=== PATIENT | male | born 1945 | race Caucasian/White ===

== ENCOUNTER 2017-04-25 21:35 | Inpatient (IN) | payer MEDICARE ==
[~2017-04-25] VITALS: Ht 170.2 cm; Wt 88.6 kg
[~2017-04-25 21:35] MED LIST: INSU100I13 SQ; INSU100I17 SQ; [UNRECOGNIZED DRUG - REMARK]; [UNRECOGNIZED DRUG - REMARK]
--- NOTE | 2017-04-25 22:41 | RAD ---
PQRS Compliance Statement: One or more of the following individualized dose reduction techniques were utilized for this examination: 1. Automated exposure control 2. Adjustment of the mA and/or kV according to patient size 3. Use of iterative reconstruction technique CT head without contrast 04/25/2017 10:14 PM INDICATION: Right-sided weakness, right facial tingling COMPARISON: None available TECHNIQUE: Multiple axial CT images of the head were obtained from skull base through the vertex without intravenous contrast. FINDINGS: Head: Ventricles, sulci and basal cisterns are mildly prominent compatible with mild generalized cerebral volume loss. 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 Suboccipital craniotomy changes are present with subjacent encephalomalacia. Aneurysm clip is visualized in the right PICA region. There is no hydrocephalus. No cytotoxic edema is visualized. There is no acute intracranial hemorrhage. There is no mass, mass effect or midline shift. Visualized portions of the orbits are normal. Paranasal sinuses are well aerated. Mastoid air cells are well aerated. Scalp and calvaria are normal. IMPRESSION: No acute intracranial hemorrhage. Suboccipital craniotomy for aneurysm clipping in the right posterior inferior cerebellar artery territory. There is encephalomalacia involving the right cerebellum and medial left cerebellum. FOR INTERNAL CODING PURPOSES Critical result: Findings discussed with CHUNG LAWRENCE at 04/25/2017 10:37 PM. RESULT CODE: (C) Electronically signed by: Karyn Mcclendon MD (04/25/2017 10:38 PM) [facility]
[2017-04-25 22:49] LABS: BASO % 0 % (0-3); EOS # 0.2 x10^3/uL (0.0-0.7); EOS % 2 % (0-3); HEMATOCRIT 43.1 % (39.0-53.0); HEMOGLOBIN 15.3 g/dL (13.0-17.5); LYMPH # 3.4 x10^3/uL (1.0-4.8); LYMPH % 33 % (24-48); MEAN CORPUSCULAR HEMOGLOBIN 31 pg (25-35); MEAN CORPUSCULAR HGB CONC 36 g/dL (31-37); MEAN CORPUSCULAR VOLUME 88 fL (79-100); MONO # 0.8 x10^3/uL (0.0-1.1); MONO % 8 % (0-9); NEUT # 5.8 x10^3uL (1.8-7.7); NEUT % 57 % (31-73); PLATELET COUNT 192 x10^3/uL (140-400); RED BLOOD COUNT 4.89 x10^6/uL (4.30-5.70); RED CELL DISTRIBUTION WIDTH 13.1 % (11.5-14.5); WHITE BLOOD COUNT 10.2 x10^3/uL (4.0-11.0)
[2017-04-25 22:51] LABS: ALBUMIN 3.6 g/dL (3.4-5.0); CREATININE 1.8 mg/dL (0.7-1.3); GFR 37.5; POTASSIUM 3.7 mmol/L (3.5-5.1); TOTAL BILIRUBIN 0.5 mg/dL (0.2-1.0); TOTAL PROTEIN 7.1 g/dL (6.4-8.2)
--- NOTE | 2017-04-25 22:58 | EKG ---
[address] [address] Test Date: 2017-04-25 Test Time: 22:30:35 Pat Name: HALEY SUÁREZ Department: Room: Gender: M Personal Driver: CIRO : [id number] Requested By: CHUNG LAWRENCE Order Number: [id number] Reading MD: Jonathan Gan Measurements Intervals [place] Rate: 72 P: 26 CT: 186 QRS: 43 QRSD: 92 T: 43 QT: 378 QTc: 415 Interpretive Statements SINUS RHYTHM NONSPECIFIC ST-T WAVE CHANGES. RI6.01 Unconfirmed report No previous ECG available for comparison Electronically Signed On 05-05-2017 16:21:23 ELECTRICIAN HELPER by Jonathan Gan
[2017-04-25] MEDS ORDERED: IOHEXOL 300 MG/ML 75 ML VIAL. IV ONE (23:00)
[2017-04-25 23:13] LABS: BILIRUBIN,URINE NEG (NEG); CLARITY,URINE CLEAR; COLOR,URINE YELLOW; GLUCOSE,URINE >=1000 mg/dL (NEG); NITRITE,URINE NEG (NEG); RBC,URINE 0 /HPF (0-2); UROBILINOGEN,URINE 0.2 mg/dL (0.2 mg/dL)
[2017-04-25 23:14] LABS: BACTERIA,URINE 0 /HPF (0-FEW); SQUAMOUS EPITHELIAL CELL,UR OCC /LPF; WBC,URINE 0 /HPF (0-4)
[2017-04-25] MEDS ORDERED: IOHEXOL 300 MG/ML 50 ML VIAL. IV ONE ×2 (23:15)
[2017-04-25] MEDS ORDERED: CONTRAST GIVEN MC PRN (23:15)
[2017-04-25 23:48] LABS: SEDIMENTATION RATE 2 (0-15)
[2017-04-26] VITALS (7 sets, daily range): BP systolic 100–140; BP diastolic 46–61
--- NOTE | 2017-04-26 01:02 | PHYS DOC ---
Past History Past Medical History: Arthritis, CAD, Diabetes, High Cholesterol, Heart Disease , Hypertension, Other Past Surgical History: Appendectomy, Cholecystectomy, Other Alcohol Use: Rarely Drug Use: None Adult General Chief Complaint Chief Complaint: WEAKNESS/GENERALIZED HPI HPI Patient is a 71-year-old gentleman with history significant for an aneurysm back in 1983 as well as diabetes and hypertension presents here today secondary to numbness to the right side of his face as well as numbness to his fingers that started approximately 9:30 PM tonight. Patient denies any weakness to his upper or lower extremities. Family denies any slurring of speech although they report that he does look like he has a slight right facial droop. Patient denies any difficulty with ambulation or weakness to his lower extremities. Patient has any double vision or blurred vision. Patient denies any difficulty swallowing. Patient denies any respiratory issues. Patient has any chest pain or shortness of breath. Patient reports that when the symptoms first started it occurred in his fingers and now his right hand feels numb. Patient denies any weakness to his hand just feels numb according the patient. Patient denies any history of strokes in the past. Patient has any history of atrial fibrillation. Patient is status post appendectomy and cholecystectomy. Patient has had a history of skin cancer in the past. reports that he did have an aneurysm in the past, approximately 1983, which resulted in him being in a coma for quite a long time was listed have seizures lifelong which she reports no seizures ever since being discharged from the hospital. Review of systems: Constitutional: Denies fever or chills Eyes: Denies change in visual acuity, redness, or eye pain HENT: Denies nasal congestion or sore throat Respiratory: Denies cough or shortness of breath All other systems were reviewed and found to be within normal limits, except as documented in this note. Physical exam: Constitutional: Well developed, well nourished, no acute distress, non-toxic appearance. HENT: Normocephalic, atraumatic, bilateral external ears normal, nose normal. Eyes: PERRLA, EOMI, conjunctiva normal, no discharge. Neck: Normal range of motion, no tenderness, supple, no stridor. Cardiovascular: Heart rate regular rhythm, Lungs & Thorax: Bilateral breath sounds clear to auscultation Abdomen: No abdominal distention. Skin: Warm, dry, no erythema, no rash. Back: Normal spinal curvature Extremities: No tenderness, no cyanosis, no clubbing, ROM intact, no edema. Neurologic: Alert and oriented X 3, normal motor function, patient with sensory deficit to his right cheek and face. Patient was sensory deficit to his right hand. Patient has no sensory deficit to person's body. Patient's motor strength is 5 out of 5 in his upper and lower extremities. Patient is 5 out of 5 bilateral hand grasp bicep flexion shoulder shrug. Patient has no pronator drift. Psychologic: Affect normal, judgement normal, mood normal. Patient's ER physical exam was most remarkable: Normal neurological exam except for paresthesias to his right face with a slight right nasolabial fold flattening. Patient has paresthesias to his right hand however has actually no motor deficit. EKG as interpreted by ER physician reveals: Normal sinus rhythm with nonspecific ST-T wave abnormalities. No ST elevation MT. Chest x-ray as interpreted by ER physician reveals: Normal chest x-ray CT scan of head: No evidence of any acute stroke or bleed. Assessment and plan: 1. 71year-old gentleman who presents here today secondary to new onset paresthesias to his right face and new-onset paresthesias to his right hand as well as flattening of his right nasolabial fold. Patient's ER workup is been unremarkable. Patient is not a candidate for thrombolytic therapy secondary to his prior history of a brain aneurysm. Patient will be admitted to the hospital for further evaluation of his new neurological symptoms. Stroke protocol has been initiated on this patient. Aspirin will be given. Current Medications Current Medications Current Medications Medications (Trade) Dose Ordered Sig/Hali Start Time Stop Time Status Last Admin Dose Admin Info (Do NOT chart on this entry -- for MONITORING) 1 each PRN DAILY PRN 04/25/17 23:15 04/27/17 23:14 Iohexol (Omnipaque 300 Mg/ml) 50 ml 1X ONCE 04/25/17 23:15 04/25/17 23:16 DC Allergies Allergies Allergies Coded Allergies Type Severity Reaction Last Updated Verified glipizide Allergy Mild Diarrhea 04/25/17 Yes metformin Allergy Mild Diarrhea 04/25/17 Yes Current Patient Data Vital Signs Vital Signs Date Time Temp Pulse Resp B/P (MAP) Pulse Ox O2 Delivery O2 Flow Rate FiO2 04/25/17 21:44 97.9 72 20 96 Room Air Lab Results Laboratory Tests Test 04/25/17 22:20 04/25/17 22:42 White Blood Count 10.2 x10^3/uL (4.0-11.0) Red Blood Count 4.89 x10^6/uL (4.30-5.70) Hemoglobin 15.3 g/dL (13.0-17.5) Hematocrit 43.1 % (39.0-53.0) Mean Corpuscular Volume 88 fL (79-100) Mean Corpuscular Hemoglobin 31 pg (25-35) Mean Corpuscular Hemoglobin Concent 36 g/dL (31-37) Red Cell Distribution Width 13.1 % (11.5-14.5) Platelet Count 192 x10^3/uL (140-400) Neutrophils (%) (Auto) 57 % (31-73) Lymphocytes (%) (Auto) 33 % (24-48) Monocytes (%) (Auto) 8 % (0-9) Eosinophils (%) (Auto) 2 % (0-3) Basophils (%) (Auto) 0 % (0-3) Neutrophils # (Auto) 5.8 x10^3uL (1.8-7.7) Lymphocytes # (Auto) 3.4 x10^3/uL (1.0-4.8) Monocytes # (Auto) 0.8 x10^3/uL (0.0-1.1) Eosinophils # (Auto) 0.2 x10^3/uL (0.0-0.7) Basophils # (Auto) 0.0 x10^3/uL (0.0-0.2) Erythrocyte Sedimentation Rate 2 (0-15) Prothrombin Time 10.2 SEC (9.4-11.4) Prothrombin Time INR 1.0 (0.9-1.1) PTT 24 SEC (23-33) Sodium Level 139 mmol/L (136-145) Potassium Level 3.7 mmol/L (3.5-5.1) Chloride Level 104 mmol/L (98-107) Carbon Dioxide Level 27 mmol/L (21-32) Anion Gap 8 (6-14) Blood Urea Nitrogen 24 mg/dL (8-26) Creatinine 1.8 mg/dL (0.7-1.3) H Estimated GFR (Cockcroft-Gault) 37.5 BUN/Creatinine Ratio 13 (6-20) Glucose Level 139 mg/dL (70-99) H Calcium Level 9.0 mg/dL (8.5-10.1) Total Bilirubin 0.5 mg/dL (0.2-1.0) Aspartate Amino Transferase (AST) 30 U/L (15-37) Alanine Aminotransferase (ALT) 44 U/L (16-63) Alkaline Phosphatase 109 U/L (46-116) Troponin I Quantitative < 0.017 ng/mL (0-0.055) Total Protein 7.1 g/dL (6.4-8.2) Albumin 3.6 g/dL (3.4-5.0) Albumin/Globulin Ratio 1.0 (1.0-1.7) Urine Collection Type Unknown Urine Color Yellow Urine Clarity Clear Urine pH 5.5 Urine Specific [place] 1.015 Urine Protein Neg (NEG-TRACE) Urine Glucose (UA) >=1000 mg/dL (NEG) Urine Ketones (Stick) Trace mg/dL (NEG) Urine Blood Neg (NEG) Urine Nitrite Neg (NEG) Urine Bilirubin Neg (NEG) Urine Urobilinogen Dipstick 0.2 mg/dL (0.2 mg/dL) Urine Leukocyte Esterase Neg (NEG) Urine RBC 0 /HPF (0-2) Urine WBC 0 /HPF (0-4) Urine Squamous Epithelial Cells Occ /LPF Urine Bacteria 0 /HPF (0-FEW) EKG EKG [] Radiology/Procedures Radiology/Procedures [] Course & Med Decision Making Course & Med Decision Making Pertinent Labs and Imaging studies reviewed. (See chart for details) [] Dragon Disclaimer Dragon Disclaimer This electronic medical record was generated, in whole or in part, using a voice recognition dictation system. Departure Departure: Impression: Primary Impression: Stroke determined by clinical assessment Additional Impression: Facial paresthesia Disposition: ADMITTED INPATIENT Admitting Physician: Waqas Foley Condition: STABLE Referrals: WAQAS FOLEY MD (PCP) Problem Qualifiers CHUNG LAWRENCE MD Apr 26, 2017 01:02
[2017-04-26] MEDS ORDERED: ONDANSETRON PF 4 MG/2 ML VIAL. IV PRN (01:15)
[2017-04-26] MEDS ORDERED: ACETAMINOPHEN 325 MG TABLET PO PRN (01:15)
[2017-04-26] MEDS ORDERED: ASPIRIN ENTERIC COATED 325 MG TABLET.DR. PO ONE (01:15)
[2017-04-26] MEDS ORDERED: ATOR20TA58 PO (03:49)
[2017-04-26] MEDS ORDERED: MECL25TA3 PO (03:49)
[2017-04-26] MEDS ORDERED: GABA300C8 PO (03:49)
[2017-04-26] MEDS ORDERED: LISI10TA2 PO (03:49)
[2017-04-26] MEDS ORDERED: GLIP5TAB10 PO (03:49)
[2017-04-26] MEDS ORDERED: TAMS0.4C2 PO (03:49)
[2017-04-26] MEDS ORDERED: CANA300T PO (03:49)
--- NOTE | 2017-04-26 07:59 | RAD ---
History: Right-sided weakness AP view the chest was obtained at 2302 hours. Comparison: none The cardiomediastinal silhouette is normal. The pulmonary vasculature is normal. The lungs and pleural margins are clear. Impression: No evidence of an acute cardiopulmonary process.
[2017-04-26] MEDS: GABAPENTIN 300 MG CAPSULE. PO SCH ×2 (08:48→14:00)
[2017-04-26] MEDS: MECLIZINE 12.5 MG TABLET. PO SCH ×2 (08:49→20:48)
[2017-04-26] MEDS: LISINOPRIL 10 MG TABLET PO SCH (08:49)
[2017-04-26] MEDS: glipiZIDE 5 MG TABLET PO SCH (08:50)
[2017-04-26] MEDS: NON FORMULARY ITEM (Canagliflozin (Invokana) 300 MG) PO SCH (08:52)
[2017-04-26] MEDS: INSULIN ASPART 300 UNITS/3 ML INSULN.PEN SQ SCH ×3 (08:55→17:15)
--- NOTE | 2017-04-26 14:43 | HP ---
ADMIT DATE: 04/26/2017 HISTORY OF PRESENT ILLNESS: A 71-year-old gentleman with history significant for aneurysm in the back of his head in 1983 as well as diabetes and hypertension. The patient has secondary numbness starting to spread down in the right side of his face as well as numbness to his fingers, right arm, and also a toe drop on his right foot. The patient denies any other problems at the present time. He denies any slurred speech. He does look a little bit weaker. He does have slight right facial droop and difficulty with strength in his right arm. He denies any double vision, blurred vision. Denies chest pain, palpitations, fluttering, shortness of breath at the present time. He did note that the numbness started in his fingers and thumb and now has gotten up the arms since he has been out of the Emergency Room. The patient was admitted to the hospital for further evaluation and treatment thereof. MEDICATIONS: Include Accu-Chek ____, Centrum, NovoLog FlexPen, Lantus SoloSTAR, Glucotrol 5 mg daily, Lipitor 20 mg daily, lisinopril 10 mg a day, Flomax 0.4 b.i.d., meclizine 25 mg 1 tablet b.i.d., Invokana 300 mg 1 tablet daily, Lantus, Neurontin 300 mg 3 times a day, Glucotrol. PAST MEDICAL HISTORY: Positive for arthritis, coronary artery disease, type 2 diabetes, hypercholesterolemia, heart disease, hypertension, cerebral aneurysm, hypertriglyceridemia, nephrolithiasis. ALLERGIES: Adverse reaction to METFORMIN. FAMILY HISTORY: Father of unknown causes. Mother had cancer and diabetes. One brother, heart disease, blood thickening problems with diabetes. SOCIAL HISTORY: The patient is a former smoker, quit smoking several years ago. Does exercise. Occasional alcohol, but nothing significant there. REVIEW OF SYSTEMS: ____ right-sided numbness, otherwise, see the HPI. Denies any chest pain, shortness of breath, abdominal pain. Denies nausea, vomiting, melena, hematochezia, or hematemesis. Denies any diaphoresis. PHYSICAL EXAMINATION: GENERAL: Pleasant white male in moderate amount of distress, some facial weakness. VITAL SIGNS: Blood pressure 140/70, respiratory rate 20, pulse 70, afebrile. HEENT: The patient's head was atraumatic, normocephalic. Eyes: PERRLA without jaundice. Mouth and throat were normal. Some facial droopiness to the right side. The patient's speech appears to be basically normal, although enunciation is a little bit off from what he normally has. NECK: Supple, without JVD, carotid bruits. No thyromegaly. LUNGS: Diminished throughout, but clear. CARDIOVASCULAR: Regular sinus rhythm, S1, S2, without murmur, rub, thrill, or extra heart sound. ABDOMEN: The patient's abdomen was soft, nontender, no rebound or guarding. Positive bowel sounds. EXTREMITIES: No clubbing, cyanosis, or edema. 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 He does have a toe drop as he walks, catches a toe when he walks. Otherwise, speech appears to be basically normal. Some right-sided facial drooping. LABORATORY DATA: The patient's labs show creatinine elevated at 1.8, sugar 155. Troponin is normal. CBC basically unremarkable as well as his UA. Coags were negative. Electrocardiogram done, but not read. IMPRESSION: Probable left-sided cerebrovascular accident with right-sided hemiparesis, paresthesia on the right side, type 2 diabetes, chronic kidney disease 3, hyperlipidemia, borderline hypertension. He will continue to be monitored carefully, make further evaluation on him as indicated and we will go ahead and consult with Dr. Leigh, make further adjustments on his medications. RONALDO PULLIAM MD DR: CLARISSE/jonathan JOB#: [id number] / [id number]
--- NOTE | 2017-04-26 17:05 | RAD ---
Bilateral duplex carotid ultrasound: Indication: Right-sided face and arm tingling and numbness. Procedure: Two dimensional, duplex and color-flow images with spectral waveform analysis are obtained of the carotid arteries bilaterally. Vertebral arteries are also imaged. Findings: Right Carotid: The 2 D images demonstrate mild plaquing with no evidence of significant narrowing. The color images are normal without turbulence or jet effect. On the right ICA peak systolic velocity is 71 cm/sec. I The ICA/CCA ratio is 0.9 . Left Carotid: The 2 D images demonstrate mild plaquing with no evidence of significant narrowing. The color images are normal without turbulence or jet effect. On the left ICA peak systolic velocity is 81 cm/sec. The ICA/CCA ratio is 0.9 . Vertebral Arteries: The right vertebral artery is normal with normal direction of flow. The left vertebral artery is normal with normal direction of flow. Impression: There is evidence of atherosclerotic disease but no evidence of hemodynamically significant stenosis.
[2017-04-26] MEDS ORDERED: ATORVASTATIN CALCIUM 20 MG TABLET PO SCH (21:00)
[2017-04-26] MEDS ORDERED: INSULIN DETEMIR 300 UNITS/3 ML INSULN.PEN. SQ SCH (21:00)
[2017-04-26] MEDS ORDERED: TAMSULOSIN 0.4 MG CAP.ER.24H. PO SCH (21:00)
--- NOTE | 2017-04-27 00:10 | CONS ---
DATE OF CONSULTATION: 04/26/2017 REFERRING PHYSICIAN: Dr. Waqas Foley. REASON FOR CONSULTATION: Right facial numbness and intermittent numbness of the right arm and hand. HISTORY OF PRESENT ILLNESS: This is a 71-year-old right-handed white male who was admitted through Emergency Room after he presented with acute onset of right facial numbness and paresthesia that began at around 9 o'clock last night. The patient also complains of intermittent numbness and paresthesia of the right arm, but not right leg. These symptoms persisted since admission. He denies headaches, visual disturbances, nausea, vomiting, chest pain, shortness of breath or palpitation, dysarthria, dysphagia, or diplopia. Initial non-enhanced head CT scan revealed no evidence of acute intracranial process as hemorrhage, but it showed aneurysm clipping in the right posteroinferior cerebellar artery territory with encephalomalacia in the right cerebellum and medial left cerebellum. PAST MEDICAL HISTORY: Significant for aneurysmal clipping as described above in 1983, resulted in and resulted in imbalance and mild gait disturbances. Other medical problems include coronary artery disease, hyperlipidemia, hypertension, benign prostate hypertrophy, arthritis, right shoulder surgery, diabetes mellitus type 2, and skin cancer. PAST SURGICAL HISTORY: Clipping of aneurysm on the right PICA territory, appendectomy, and cholecystectomy. FAMILY HISTORY: Diabetes mellitus in his mother. SOCIAL HISTORY: The patient is a smoker. He denies alcohol or history of drug use. REVIEW OF SYSTEMS: A 10-point review of system was performed as mentioned above in the history of present illness. CURRENT MEDICATIONS: Aspirin 325 mg daily, insulin Levemir 45 units at bedtime, Flomax 0.8 at bedtime, Lipitor 20 mg every meclizine 25 mg b.i.d. p.r.n., lisinopril 10 mg daily, gabapentin 300 mg t.i.d., insulin NovoLog 20 units t.i.d. with meals, glipizide 5 mg daily, and Tylenol. ALLERGIES: Metformin. PHYSICAL EXAMINATION: GENERAL: Well-developed, well-nourished white male, not in acute distress. He weighs 198.5 pounds. VITAL SIGNS: Blood pressure 106/50, respiratory rate 18, pulse is 68 and regular, temperature 97.6, oxygen saturation 96% on room air. HEENT: Normocephalic, atraumatic, otherwise unremarkable. NECK: Supple. Negative for carotid bruit, lymphadenopathy or thyromegaly. LUNGS: Clear to A and P. CARDIOVASCULAR: Regular rate and rhythm, normal S1, S2. There is no S3, S4 or murmur. ABDOMEN: Soft. Bowel sounds positive. EXTREMITIES: Negative for cyanosis, clubbing or edema. NEUROLOGIC: MENTAL STATUS: The patient is alert and oriented x 3. Speech is fluent. There is no language dysfunction. Memory, judgment, and abstract thinking are normal. The patient denies hallucination or delusion. CRANIAL NERVES: Visual arzola are full. The pupils are reactive to light and accommodation. The extraocular movements are intact. There is no nystagmus. Motor facial is symmetric, but there is a mild right facial or sensory deficit compared to that on the left side. Hearing is intact bilaterally. The palate is elevated symmetrically. Sternocleidomastoid muscles are powerful bilaterally. The patient shrugs his shoulders symmetrically and protrudes his tongue in the midline without fasciculation or atrophy. MOTOR EXAMINATION: No focal muscle bulk was seen. The tone is normal. The strength is 5/5 throughout. SENSORY EXAMINATION: Revealed slightly diminished pinprick and light touch senses over the right upper extremity and lateral dermatomes compared to those on the left side since the examination also was normal to pinprick, light touch, vibratory, and position senses. Deep tendon reflexes were symmetric and active without pathology responses. Gait: The stance is steady. The patient had a wide step gait. Romberg sign is positive. LABORATORY DATA: CBC revealed white blood cells of 10.2, hemoglobin 15.3, hematocrit 43.1, platelet count 192,000. Chemistry revealed sodium of 139, potassium 3.7, chloride 104, CO2 27, BUN 24, creatinine 1.8, glucose 139, and calcium 9. Liver enzymes are normal. Troponin level less than 0.017. INR is 1 with a PT of 10.2. Urinalysis is negative for urinary tract infections. DIAGNOSTIC DATA: Head CT scan as described above in the history of present illness. Chest x-ray revealed no evidence of acute cardiopulmonary process. IMPRESSION: 1. Persistent right facial and intermittent numbness and paresthesia of the right upper extremity, rule out recent ischemic event. 2. History of aneurysm clipping in the right posterior inferior cerebellar artery territory and cerebellar infarct may have contributed to the recurrent gait disturbances. 3. Multiple medical problems include hypertension, hyperlipidemia, and coronary artery disease. RECOMMENDATIONS: 1. Continue with the current home medications. 2. Physical therapy as tolerated. 3. Carotid Doppler study. 4. The patient cannot obtain brain MRI because of an aneurysm clipping. M Susi DAVILA MD DR: ANDREA/jonathan JOB#: [id number] / [id number]
[2017-04-27 04:09] LABS: HEMOGLOBIN A1C 6.7 % (4.8-5.6)
[2017-04-27 05:02] VITALS: BP 101/47
[2017-04-27 07:07] LABS: BASO % 1 % (0-3); EOS # 0.2 x10^3/uL (0.0-0.7); EOS % 3 % (0-3); HEMATOCRIT 42.8 % (39.0-53.0); HEMOGLOBIN 14.7 g/dL (13.0-17.5); LYMPH # 2.8 x10^3/uL (1.0-4.8); LYMPH % 37 % (24-48); MEAN CORPUSCULAR HEMOGLOBIN 31 pg (25-35); MEAN CORPUSCULAR HGB CONC 34 g/dL (31-37); MEAN CORPUSCULAR VOLUME 89 fL (79-100); MONO # 0.6 x10^3/uL (0.0-1.1); MONO % 9 % (0-9); NEUT # 3.8 x10^3uL (1.8-7.7); NEUT % 51 % (31-73); PLATELET COUNT 181 x10^3/uL (140-400); RED CELL DISTRIBUTION WIDTH 12.9 % (11.5-14.5); WHITE BLOOD COUNT 7.5 x10^3/uL (4.0-11.0)
[2017-04-27 07:19] LABS: ALBUMIN 3.2 g/dL (3.4-5.0); CREATININE 1.1 mg/dL (0.7-1.3); GFR 66.2; POTASSIUM 4.2 mmol/L (3.5-5.1); TOTAL BILIRUBIN 0.6 mg/dL (0.2-1.0); TOTAL PROTEIN 6.5 g/dL (6.4-8.2)
[2017-04-27] MEDS ORDERED: ASPIRIN 325 MG TABLET PO SCH (08:00)
[2017-04-27] MEDS: MECLIZINE 12.5 MG TABLET. PO SCH (08:07)
[2017-04-27] MEDS: INSULIN ASPART 300 UNITS/3 ML INSULN.PEN SQ SCH ×2 (08:07→12:20)
[2017-04-27] MEDS: NON FORMULARY ITEM (Canagliflozin (Invokana) 300 MG) PO SCH (08:08)
[2017-04-27] MEDS: glipiZIDE 5 MG TABLET PO SCH (08:08)
[2017-04-27] MEDS: LISINOPRIL 10 MG TABLET PO SCH (08:59)
[2017-04-27 10:42] VITALS: BP 131/62
[2017-04-27] MEDS ORDERED: ASPI325T8 PO (11:25)
--- NOTE | 2017-04-27 12:01 | PN ---
DATE: 04/27/2017 SUBJECTIVE: The patient continues to complain of numbness and tingling of the right hand and forearm. He denies headaches, visual disturbances, nausea, vomiting, chest pain, shortness of breath or palpitation, dysarthria, dysphagia or weakness. OBJECTIVE: GENERAL: Well-developed, well-nourished white male, not in acute distress. VITAL SIGNS: Blood pressure 128/66, respiratory rate 18, pulse is 73 and regular, temperature 97.6, oxygen saturation is 96% on room air. HEENT: Normocephalic, atraumatic, otherwise unremarkable. NECK: Supple. Negative for carotid bruit, lymphadenopathy or thyromegaly. LUNGS: Clear to A and P. CARDIOVASCULAR: Regular rate and rhythm, normal S1, S2. There is no S3, S4 or murmur. ABDOMEN: Soft. Bowel sounds positive. EXTREMITIES: Negative for cyanosis, clubbing or pitting edema. NEUROLOGIC: Normal mental status and intact cranial nerves. Motor: No focal muscle bulk was seen. The tone is normal. The strength is 5/5 throughout. Sensory examination revealed diminished pinprick and light touch senses in the right upper extremity and slightly in the distal right lower extremity. Deep tendon reflexes are symmetric and active with absent Achilles responses. Gait: The patient had broad-step gait. Roberg sign is negative. IMPRESSION: 1. Persistent numbness on the right face, arm and leg, probably due to recent ischemic event. 2. Rule out entrapment neuropathy in the right upper extremity. 3. Multiple medical problems include diabetes mellitus, hypertension, hyperlipidemia, coronary artery disease and history of clipping of brain aneurysm at right PICA territory (posterior inferior cerebellar artery territory) and cerebellar infarct. DIAGNOSTIC DATA: Carotid Doppler study revealed no evidence of acute internal carotid stenosis. RECOMMENDATIONS: 1. Continue with current management initiated by Dr. Foley. 2. Continue his physical therapy. 3. Follow up with Dr. Leigh after 2 weeks to rule out entrapment neuropathy in the right upper and lower extremities. M Susi LEIGH MD DR: ANDREA/jonathan JOB#: [id number] / [id number]
== END 2017-04-27 13:30 | disposition home or self-care (01) | DRG 65 ==
LOC: ER 21:35 → 1 SOUTH 04-26 01:00
PROVIDERS: ADMIT Family Medicine; ATTEND Family Medicine
DX: I63.9 Cerebral infarction, unspecified (principal); G81.91 Hemiplegia, unspecified affecting right dominant side; E11.22 Type 2 diabetes mellitus with diabetic chronic kidney disease; G93.89 Other specified disorders of brain; I48.91 Unspecified atrial fibrillation; G58.8 Other specified mononeuropathies; E78.00 Pure hypercholesterolemia, unspecified; E78.1 Pure hyperglyceridemia; E78.5 Hyperlipidemia, unspecified; F17.200 Nicotine dependence, unspecified, uncomplicated; I25.10 Atherosclerotic heart disease of native coronary artery without angina pectoris; I12.9 Hypertensive chronic kidney disease with stage 1 through stage 4 chronic kidney disease, or unspecified chronic kidney disease; N40.0 Benign prostatic hyperplasia without lower urinary tract symptoms; N18.3 Chronic kidney disease, stage 3 (moderate); M19.90 Unspecified osteoarthritis, unspecified site; Z80.9 Family history of malignant neoplasm, unspecified; Z82.49 Family history of ischemic heart disease and other diseases of the circulatory system; Z83.3 Family history of diabetes mellitus; Z85.828 Personal history of other malignant neoplasm of skin; Z86.79 Personal history of other diseases of the circulatory system; Z87.442 Personal history of urinary calculi; Z90.49 Acquired absence of other specified parts of digestive tract; Z88.8 Allergy status to other drugs, medicaments and biological substances; Z79.4 Long term (current) use of insulin
CPT/HCPCS: 36415; 70450; 71010; 80053; 80061; 81001; 82947; 83036; 84484; 85025; 85610; 85651; 85730; 93005; 93880; J1815; J8597; 99285-25

== ENCOUNTER 2017-11-19 19:37 | Emergency (ER) | payer MEDICARE ==
[~2017-11-19] VITALS: Ht 170.2 cm; Wt 92.9 kg
[~2017-11-19 19:37] MED LIST changes: +ASPI325T8 PO; +ATOR20TA58 PO; +CANA300T PO; +GABA300C8 PO; +GLIP5TAB10 PO; +LISI10TA2 PO; +MECL25TA3 PO; +TAMS0.4C2 PO
[2017-11-19] MEDS ORDERED: DIPHTH,PERTUSS(ACELL),TET TOX 0.5 ML DISP.SYRIN. VAX IM ONE (20:00)
[2017-11-19] MEDS ORDERED: LIDOCAINE 2% 20 ML VIAL. IJ ONE (20:00)
[2017-11-19 20:37] VITALS: BP 135/58
--- NOTE | 2017-11-19 20:41 | PHYS DOC ---
Past History Past Medical History: Arthritis, CAD, Diabetes, High Cholesterol, Heart Disease , Hypertension, Other Past Surgical History: Appendectomy, Cholecystectomy, Other Alcohol Use: Rarely Drug Use: None Adult General Chief Complaint Chief Complaint: LACERATION/AVULSION HPI HPI Patient is a 72-year-old male who is presenting with a laceration to the right ring finger. Apparently he cut it on a piece of metal as he was trying to put a window in the back of a car. The glass did not shatter he cut on metal not flaccid that he knows there is no glass inside the finger. He has baseline numbness from a prior stroke no new numbness Review of Systems Review of Systems Constitutional: Denies fever or chills [] Eyes: Denies change in visual acuity, redness, or eye pain [] HENT: Denies nasal congestion or sore throat [] Respiratory: Denies cough or shortness of breath [] Neurologic: Sensory changes noted. All other systems were reviewed and found to be within normal limits, except as documented in this note. Current Medications Current Medications Current Medications Medications (Trade) Dose Ordered Sig/Hali Start Time Stop Time Status Last Admin Dose Admin Diphtheria/ Tetanus/Acell Pertussis (Boostrix) 0.5 ml ONCE ONCE 11/19/17 20:00 11/19/17 20:01 DC 11/19/17 20:33 0.5 ML Lidocaine HCl 20 ml 1X ONCE 11/19/17 20:00 11/19/17 20:01 DC Allergies Allergies Allergies Coded Allergies Type Severity Reaction Last Updated Verified metformin Allergy Mild Diarrhea 04/25/17 Yes gabapentin Allergy Unknown 04/26/17 Yes Physical Exam Physical Exam Constitutional: Well developed, well nourished, no acute distress, non-toxic appearance. [] HENT: Normocephalic, atraumatic, bilateral external ears normal, oropharynx moist, no oral exudates, nose normal. [] Eyes: PERRLA, EOMI, conjunctiva normal, no discharge. [] Normal effort no increased work of breathing Skin: Warm, dry, no erythema, no rash. [] Back: No tenderness, no CVA tenderness. [] Extremities: There is a 2 cm laceration on the ulnar side of the fourth finger on the right hand no tendon injury was identified no foreign body was seen. There is also a small 1 severe laceration just proximal to that. Moderate bleeding Full extensor and flexor function was noted Neurologic: Alert and oriented X 3, normal motor function, decreased sensory function on the right hand which is not new EKG EKG [] Radiology/Procedures Radiology/Procedures [] Course & Med Decision Making Course & Med Decision Making Pertinent Labs and Imaging studies reviewed. (See chart for details) Laceration repair: Verbal consent was obtained digital block with 3 mL so subcutaneous lidocaine 2% patient tolerated well the wound was cleansed usual fashion no foreign body was identified the wound was closed with a total of 5 simple interrupted sutures. There was a small 1 cm laceration closed with 2 simple interrupted and also a 2 cm laceration closed with 3 simple interrupted Laceration as noted repaired as above tetanus was updated blood pressure looked good wound care instructions provided patient is a diabetic so specifically asked to come back for any signs of redness or any other symptoms. Dragon Disclaimer Dragon Disclaimer This electronic medical record was generated, in whole or in part, using a voice recognition dictation system. Departure Departure: Impression: Primary Impression: Laceration Disposition: 01 HOME, SELF-CARE Condition: STABLE Patient Instructions: Laceration Care, Adult JUAN DUNCAN MD Nov 19, 2017 20:41
== END 2017-11-19 20:45 | disposition home or self-care (01) ==
LOC: ER 19:37
DX: S61.214A Laceration without foreign body of right ring finger without damage to nail, initial encounter (principal); M19.90 Unspecified osteoarthritis, unspecified site; I25.10 Atherosclerotic heart disease of native coronary artery without angina pectoris; E11.9 Type 2 diabetes mellitus without complications; E78.00 Pure hypercholesterolemia, unspecified; I11.9 Hypertensive heart disease without heart failure; Z88.8 Allergy status to other drugs, medicaments and biological substances; W26.8XXA Contact with other sharp object(s), not elsewhere classified, initial encounter; Y93.89 Activity, other specified; Y99.8 Other external cause status; Y92.89 Other specified places as the place of occurrence of the external cause
CPT/HCPCS: 12002; 90471; 90715; 99284-25; J2001

== ENCOUNTER → 2018-08-21 | Outpatient (CLI) | payer MEDICARE ==
--- NOTE | 2018-08-21 15:55 | RAD ---
CT study of the left hand without contrast Clinical indications: Fracture left hand 4 weeks ago. Continued swelling and pain in the left axillary and the left wrist. TECHNIQUE: Noncontrast helical CT scanning of the left hand and wrist was performed. Multiplanar 2-D reconstructions were generated. PQRS compliance Statement One or more of the following individualized dose reduction techniques were utilized for this study: 1. Automated exposure control 2. Adjustment of the mA and/or kV according to patient size 3. Use of iterative reconstruction technique FINDINGS: There is a nondisplaced fracture of the lateral proximal corner of the fifth metacarpal bone. There is a nondisplaced fracture of the proximal metaphysis of the third metacarpal bone. There is a nondisplaced fracture of the medial distal corner of the hamate bone. Small bone fragment is seen just medial to the distal aspect of the hamate bone and distal to the triquetrum bone. There is a nondisplaced fracture of the dorsal distal aspect of the capitate bone. There is a nondisplaced fracture of the dorsal distal aspect of the trapezium bone. No dislocation is seen. The [id number] axis is normal. There is no widening of the scaphoid lunate joint space or the lunate triquetrum joint space. No lytic process evident. No focal sclerosis is seen to indicate avascular necrosis of the scaphoid bone or the lunate bone. The scaphoid bone appears intact. The distal radius and ulna appear intact. IMPRESSION: Nondisplaced posttraumatic fractures of the proximal third metacarpal bone and proximal fifth metacarpal bone and distal hamate bone and distal capitate bone and distal trapezium bone. Electronically signed by: Tad Chambers MD (08/21/2018 3:52 PM) [id number]
== END | disposition home or self-care (01) ==
LOC: CT 09:08
PROVIDERS: ATTEND Family Medicine
DX: S62.145D Nondisplaced fracture of body of hamate [unciform] bone, left wrist, subsequent encounter for fracture with routine healing (principal); S62.13 Fracture of capitate [os magnum] bone; S62.175D Nondisplaced fracture of trapezium [larger multangular], left wrist, subsequent encounter for fracture with routine healing; S62.393D Other fracture of third metacarpal bone, left hand, subsequent encounter for fracture with routine healing; S62.397D Other fracture of fifth metacarpal bone, left hand, subsequent encounter for fracture with routine healing; E11.9 Type 2 diabetes mellitus without complications; X58.XXXD Exposure to other specified factors, subsequent encounter
CPT/HCPCS: 73200

== ENCOUNTER → 2019-06-06 | Outpatient (CLI) | payer MEDICARE ==
[~2019-06-06] MED LIST changes: +IOHEXOL 350 MG/ML 100 ML VIAL. IV ONE; +MECL-75 PO; -MECL25TA3 PO
--- NOTE | 2019-06-06 15:07 | RAD ---
CT angiography of the chest 06/06/2019 3:00 PM Indication: Shortness of breath Technique: Multiple contiguous axial images were obtained through the chest after administration of intravenous iodinated contrast. Coronal, sagittal, and 3-D MIP reformations were created. Comparison: Chest radiograph April 25, 2017. Findings: There is no filling defect within central pulmonary arteries or evidence of acute pulmonary embolism. Heart size is normal. No pericardial effusion is appreciated. Scattered coronary calcification noted. No pathologically enlarged mediastinal lymph nodes are seen. . The thoracic aorta is grossly normal in course and contour. There is no pneumothorax or pleural effusion. No acute infiltrates are seen. Limited visualization of the upper abdomen demonstrates no acute abnormality. No acute osseous abnormalities are appreciated. Impression: No evidence of acute pulmonary embolism or other acute cardiopulmonary process .CT DOSING PQRS STATEMENT: One or more of the following individualized dose reduction techniques were utilized for this examination: 1. Automated exposure control 2. Adjustment of the mA and/or kV according to patient size 3. Use of iterative reconstruction technique Electronically signed by: Papi Davis MD (06/06/2019 3:04 PM) [id number]
== END | disposition home or self-care (01) ==
LOC: CT 14:25
PROVIDERS: ATTEND Family Medicine
DX: R06.02 Shortness of breath (principal); I25.10 Atherosclerotic heart disease of native coronary artery without angina pectoris
CPT/HCPCS: 71275; Q9967

== ENCOUNTER 2019-09-29 13:32 | Emergency (ER) | payer MEDICARE ==
[~2019-09-29] VITALS: Ht 170.2 cm; Wt 92.9 kg
[~2019-09-29 13:32] MED LIST changes: -IOHEXOL 350 MG/ML 100 ML VIAL. IV ONE
--- NOTE | 2019-09-29 14:12 | PHYS DOC ---
Past History Past Medical History: Arthritis, CAD, CVA, Diabetes, High Cholesterol, Heart Disease, Hypertension, Stroke, Other Past Surgical History: Appendectomy, Cholecystectomy, Other Alcohol Use: None Drug Use: None General Adult EDM: Chief Complaint: FINGER INJURY HPI: HPI: 73-year-old male presents with right index finger partial amputation. The patient was using a router table when his finger got too close and he got caught in the right a bit. It has amputated the distal half of the fingernail and the rest of the distal phalanx is fairly mangled with minimal connection. The patient states that it is numb at this point. Will control the bleeding with direct pressure. He is on aspirin daily. He denies any other injuries. Review of Systems: Review of Systems: Constitutional: Denies fever or chills Eyes: Denies change in visual acuity HENT: Denies nasal congestion or sore throat Respiratory: Denies cough or shortness of breath Cardiovascular: Denies chest pain or edema GI: Denies abdominal pain, nausea, vomiting, bloody stools or diarrhea : Denies dysuria Musculoskeletal: Right index finger partial amputation Integument: Denies rash Neurologic: Denies headache, focal weakness or sensory changes Endocrine: Denies polyuria or polydipsia Lymphatic: Denies swollen glands Psychiatric: Denies depression or anxiety Heart Score: Risk Factors: Risk Factors: DM, Current or recent (<one month) smoker, HTN, HLP, family history of CAD, obesity. Risk Scores: Score 0 - 3: 2.5% MACE over next 6 weeks - Discharge Home Score 4 - 6: 20.3% MACE over next 6 weeks - Admit for Clinical Observation Score 7 - 10: 72.7% MACE over next 6 weeks - Early Invasive Strategies Allergies: Allergies: Allergies Coded Allergies Type Severity Reaction Last Updated Verified metformin Allergy Mild Diarrhea 04/25/17 Yes gabapentin Allergy Unknown 04/26/17 Yes Physical Exam: PE: Constitutional: Well developed, well nourished, no acute distress, non-toxic appearance. [] HENT: Normocephalic, atraumatic, bilateral external ears normal, oropharynx moist, no oral exudates, nose normal. [] Eyes: PERRLA, EOMI, conjunctiva normal, no discharge. [] Neck: Normal range of motion, no tenderness, supple, no stridor. [] Cardiovascular:Heart rate regular rhythm, no murmur [] Lungs & Thorax: Bilateral breath sounds clear to auscultation [] Abdomen: Bowel sounds normal, soft, no tenderness, no masses, no pulsatile masses. [] Skin: Warm, dry, no erythema, no rash. [] Back: No tenderness, no CVA tenderness. [] Extremities: Partial amputation of the distal phalanx of the second digit on the right hand. [] Neurologic: Alert and oriented X 3, normal motor function, normal sensory function, no focal deficits noted. [] Psychologic: Affect normal, judgement normal, mood normal. [] Current Patient Data: Vital Signs: Vital Signs Date Time Temp Pulse Resp B/P (MAP) Pulse Ox O2 Delivery O2 Flow Rate FiO2 09/29/19 13:42 98.5 99 18 131/74 (93) 96 Room Air EKG: EKG: [] Radiology/Procedures: Radiology/Procedures: [] Impressions: Study: CR FINGER(S) RIGHT Indication: Mangled index finger. Comparison: None. Findings: Traumatic amputation through the tuft of the index finger distal phalanx with the comminuted tuft fracture displaced within lacerated soft tissue. A few additional fracture fragments remain adjacent to the residual proximal phalanx. No acute osseous injury seen elsewhere. Multifocal interphalangeal joint arthrosis. Vascular calcifications. Impression: Traumatic amputation through the index finger distal phalanx with comminuted tuft fracture fragments displaced within mangled soft tissue. A few additional punctate fracture fragment remaining adjacent to the residual proximal phalanx. Electronically signed by: TAYLER ROSE MD (09/29/2019 2:20 PM) [id number] DICTATED AND SIGNED BY: TAYLRE ROSE MD DATE: 09/29/19 1420 CC: FARIBA BOLANOS DO; RONALDO PULLIAM MD ~ Course & Med Decision Making: Course & Med Decision Making Pertinent Labs and Imaging studies reviewed. (See chart for details) The patient has a partial amputation of the right index finger. This will need some revision to be able to close it. He will likely need some shortening of the bone as well. We have given him a Tdap and Ancef. I spoke with the orthopedic surgeon, Dr. Colon and he has accepted the patient for surgery. I spoke with Dr. Lawson, the hospitalist and he has accepted the patient for transfer and admission to [facility]. The patient will go by ambulance. [] Dragon Disclaimer: Dragon Disclaimer: This electronic medical record was generated, in whole or in part, using a voice recognition dictation system. Departure Departure: Impression: Primary Impression: Partial traumatic amputation of right index finger through phalanx [facility] Admitting Physician: Mattie Lawson Condition: STABLE Referrals: RONALDO PULLIAM MD (PCP) FARIBA BOLANOS DO September 29, 2019 14:12
[2019-09-29] MEDS ORDERED: DIPH,PERTUSS(ACELL),TET VAC/PF 0.5 ML SYRINGE. VAX IM ONE (14:15)
--- NOTE | 2019-09-29 14:23 | RAD ---
Study: CR FINGER(S) RIGHT Indication: Mangled index finger. Comparison: None. Findings: Traumatic amputation through the tuft of the index finger distal phalanx with the comminuted tuft fracture displaced within lacerated soft tissue. A few additional fracture fragments remain adjacent to the residual proximal phalanx. No acute osseous injury seen elsewhere. Multifocal interphalangeal joint arthrosis. Vascular calcifications. Impression: Traumatic amputation through the index finger distal phalanx with comminuted tuft fracture fragments displaced within mangled soft tissue. A few additional punctate fracture fragment remaining adjacent to the residual proximal phalanx. Electronically signed by: TAYLER ROSE MD (09/29/2019 2:20 PM) [id number]
[2019-09-29] MEDS ORDERED: ONDANSETRON PF 4 MG/2 ML VIAL. IVP ONE (14:30)
[2019-09-29] MEDS ORDERED: ONDANSETRON PF 4 MG/2 ML VIAL. ONE (14:31)
[2019-09-29 14:37] LABS: CALCIUM 9.1 mg/dL (8.5-10.1); CREATININE 1.1 mg/dL (0.7-1.3); GFR 65.8; POTASSIUM 4.3 mmol/L (3.5-5.1)
[2019-09-29] MEDS ORDERED: ceFAZolin SODIUM 1 GM VIAL ONE (14:37)
[2019-09-29] MEDS ORDERED: IV NORMAL SALINE 50ML 50 ML ONE (14:37)
[2019-09-29 14:42] LABS: ALBUMIN 3.7 g/dL (3.4-5.0); ALBUMIN/GLOBULIN RATIO 1.2 (1.0-1.7); TOTAL BILIRUBIN 0.6 mg/dL (0.2-1.0); TOTAL PROTEIN 6.9 g/dL (6.4-8.2)
--- NOTE | 2019-09-29 15:48 | EKG ---
[address] [address] Test Date: 2019-09-29 Test Time: 14:18:28 Pat Name: HALEY SUÁREZ Department: Room: Gender: M [employer] Monitoring: : 1945 Requested By: FARIBA BOLANOS Order Number: [id number] Reading MD: Octavio Haile Measurements Intervals [place] Rate: 79 P: 28 MA: 168 QRS: 45 QRSD: 86 T: 40 QT: 366 QTc: 421 Interpretive Statements SINUS RHYTHM Electronically Signed On 10-01-2019 15:46:17 CDT by Octavio Haile
[2019-09-29 16:11] VITALS: BP 130/61
== END 2019-09-29 16:54 | disposition short-term general hospital (02) ==
LOC: ER 13:32
DX: S68.120A Partial traumatic metacarpophalangeal amputation of right index finger, initial encounter (principal); M19.90 Unspecified osteoarthritis, unspecified site; I25.10 Atherosclerotic heart disease of native coronary artery without angina pectoris; E11.9 Type 2 diabetes mellitus without complications; E78.00 Pure hypercholesterolemia, unspecified; I11.9 Hypertensive heart disease without heart failure; Z86.73 Personal history of transient ischemic attack (TIA), and cerebral infarction without residual deficits; Z88.8 Allergy status to other drugs, medicaments and biological substances; W29.8XXA Contact with other powered hand tools and household machinery, initial encounter; Y93.89 Activity, other specified; Y92.89 Other specified places as the place of occurrence of the external cause; Y99.8 Other external cause status
CPT/HCPCS: 36415; 73140; 80053; 85610; 85730; 90471; 90715; 93005; 96365; 96375; 99285; J0690; J2405; J3010

== ENCOUNTER → 2020-02-25 | Outpatient (CLI) | payer MEDICARE ==
--- NOTE | 2020-02-25 12:41 | RAD ---
CT head, CT cervical, thoracic, and lumbar spine without contrast Indication: Fall, injury Technique: Noncontrast CT imaging was performed of the head, cervical spine, thoracic spine, and lumbar spine, multiplanar reconstruction images submitted. One or more of the following individualized dose reduction techniques were utilized for this examination: 1. Automated exposure control 2. Adjustment of the mA and/or kV according to patient size 3. Use of iterative reconstruction technique. Comparison: Head CT April 25, 2017 Head: Findings: There again has been suboccipital craniotomy. There is again encephalomalacia of the bilateral cerebellum greater on the right. 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 No convincing acute intracranial hemorrhage is identified. There is no new midline shift. There is again mild generalized supratentorial involutional change. No acute calvarial abnormality is identified. IMPRESSION: 1. No acute intracranial abnormality is identified. 2. 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 Cervical spine FINDINGS: No acute cervical spine fracture is identified. Cervical vertebral body stature is maintained. There is very mild grade 1 anterior spondylolisthesis at C7-T1. There is fairly severe degenerative disc disease at C6-7, to a lesser degree at C7-T1 and C3-4. No acute cervical spine fracture is identified. There is mild dextroscoliosis of cervical spine. There is adequate alignment of the lateral masses C1 relative to C2. Atlantoaxial distance is within normal limits. Uncovertebral degenerative change contributes to [id number] left and mild right C6-7 neural foramina compromise. There is variable multilevel cervical facet degenerative change. There is atherosclerotic calcification of the carotid arteries in the neck bilaterally. IMPRESSION: 1.No acute cervical spine fracture is identified. 2. There is degenerative disc disease and spondylosis greatest at C6-7. Thoracic spine FINDINGS: There is likely acute superior T12 compression fracture, mild osseous retropulsion superiorly. There is bone demineralization. There is mild superior endplate concavity of T3 without osseous retropulsion. There is multilevel thoracic spondylosis. There is multilevel thoracic facet degenerative change contributing to neural foramina compromise. There is moderate to severe narrowing of the right T2-3 neural foramen, to a somewhat lesser degree on the right such as at T10-11. There is other mild narrowing on the right at T3-4, T4-5, and T9-10 and T11-T12 and on the left at T7-8 and T10-11. There is coronary calcification. IMPRESSION: 1.There is superior T12 vertebral body compression fracture which is likely acute, minimal osseous retropulsion superiorly with mild indentation upon the ventral thecal sac. There is mild superior endplate concavity of T3 without osseous retropulsion, uncertain chronicity. There is bone demineralization. 2. There is multilevel vertebral thoracic neural foramina compromise due to facet degenerative change. Lumbar spine FINDINGS: There is mild superior endplate concavity of L1 without osseous retropulsion. There is bone demineralization. There is grade 1 anterior spondylolisthesis at L4-5. There is moderate to severe degenerative disc disease greatest at L5-S1 and L1-L2, to a somewhat lesser degree L2-3 through L4-5. There is multilevel spondylosis and lumbar facet degenerative change. There is scattered plaque of the abdominal aorta and branches. There is degree of stenosis of the renal arteries bilaterally. L1-L2: Disc osteophyte complex indents the ventral thecal sac greater in the left lateral recess with probable moderate left lateral recess stenosis, also probable mild right lateral recess stenosis. There is facet degenerative change. There is mild to moderate right and mild left neural foramina compromise. L2-3: There is disc osteophyte complex. There is facet degenerative change. There is likely at least mild if not moderate lateral recess stenosis bilaterally. Neural foramina are not significantly narrowed, very mild narrowing on the right. L3-L4: There is disc osteophyte complex. There is facet degenerative change. There is likely at least mild narrowing of the far left lateral recess. There is likely mild right greater than left neural foramina compromise by disc osteophyte complex and facets. L4-5: There is bilateral facet hypertrophic change. There is partial uncovering of the posterior aspect of the disc due to spondylolisthesis and superimposed minimal disc osteophyte complex. There is likely at least moderate narrowing of the far lateral recesses bilaterally and at least mild narrowing of the central canal. There is moderate, left greater than right neural foramina compromise. L5-S1: There is disc osteophyte complex. There is facet degenerative change. Spinal canal is not significantly narrowed although disc osteophyte complex contacts the descending S1 nerve roots. There is [id number], left greater than right neural foramina compromise. IMPRESSION: 1.There is mild superior L1 endplate concavity without osseous retropulsion, could be recent although chronicity more accurately evaluated by MRI. There is bone demineralization. 2. There is multilevel lumbar lateral recess stenosis. There is multilevel variable lumbar neural foramina compromise. There is multilevel lumbar degenerative disc disease and spondylosis. There is grade 1 anterior spondylolisthesis at L4-5 at which there is facet degenerative change. 3. There is degree of stenoses of the renal arteries bilaterally. Electronically signed by: Kelby Brewster MD (02/25/2020 12:38 PM) [facility]
== END ==
LOC: CT 11:32
PROVIDERS: ATTEND Family Medicine
DX: M47.815 Spondylosis without myelopathy or radiculopathy, thoracolumbar region (principal); M48.54XA Collapsed vertebra, not elsewhere classified, thoracic region, initial encounter for fracture; M43.13 Spondylolisthesis, cervicothoracic region; M50.33 Other cervical disc degeneration, cervicothoracic region; I70.0 Atherosclerosis of aorta; I70.1 Atherosclerosis of renal artery; M25.78 Osteophyte, vertebrae; M48.061 Spinal stenosis, lumbar region without neurogenic claudication; W19.XXXA Unspecified fall, initial encounter; Y93.89 Activity, other specified; Y92.89 Other specified places as the place of occurrence of the external cause; Y99.8 Other external cause status
CPT/HCPCS: 70450; 72125; 72128; 72131

== ENCOUNTER 2020-07-10 17:05 | Emergency (ER) | payer MEDICARE ==
[~2020-07-10] VITALS: Ht 170.2 cm; Wt 77.2 kg
[~2020-07-10 17:05] MED LIST changes: +LISI10TA16 PO; -LISI10TA2 PO
--- NOTE | 2020-07-10 17:28 | PHYS DOC ---
Past History Past Medical History: Arthritis, CAD, CVA, Diabetes, High Cholesterol, Heart Disease, Hypertension, Stroke, Other (TATYANA WOLFF MD) Past Surgical History: Appendectomy, Cholecystectomy, Other (TATYANA WOLFF MD) Alcohol Use: None Drug Use: None (TATYANA WOLFF MD) General Adult HPI: HPI: Patient is a 74-year-old male coming in via EMS for lower extremity weakness. Patient states that yesterday afternoon he got his [place] vaccine for COVID-19 and about 5 hours later started feel like his legs were not moving as they should. Patient states this mostly from the lower leg down that he feels weak and off balance. Denies any other symptoms. Has a history of a previous spinal fracture but denies any recent fall prior to symptoms. States he has been incontinent of urine since yesterday as well. Last bowel movement yesterday. Denies any headaches, upper extremity weakness, vision changes, sensory deficits, fevers, body aches, lower extreme edema, or burning with urination. (TATYANA WOLFF MD) Review of Systems: Review of Systems: All other systems within normal limits except for as noted in the HPI (TATYANA WOLFF MD) Allergies: Allergies: Allergies Coded Allergies Type Severity Reaction Last Updated Verified metformin Allergy Mild Diarrhea 04/25/17 Yes gabapentin Allergy Unknown 04/26/17 Yes (TATYANA WOLFF MD) Physical Exam: PE: Constitutional: Well developed, well nourished, no acute distress, non-toxic appearance. [] HENT: Normocephalic, atraumatic, bilateral external ears normal, nose normal. [] Eyes: PERRLA, conjunctiva normal, no discharge. [] Neck: No rigidity, supple, no stridor. [] Cardiovascular: Regular rate and rhythm, brisk cap refill [] Lungs & Thorax: Non labored symmetric respirations, no tachypnea or respiratory distress [] Abdomen: Soft, nondistended. Skin: Warm, dry, no erythema, no rash. [] Back: Unremarkable, no step-off or deformity, no point spinal tenderness. Extremities: No deformities, range of motion grossly intact, no lower extremity edema. Symmetric bilateral 5 lower extremity edema [] Neurologic: Alert and oriented X 3, no focal deficits noted.. No sensory deficits [] Psychologic: Affect normal, judgement normal, mood normal. [] (TATYANA WOLFF MD) EKG: EKG: Normal sinus rhythm, heart rate 76 bpm, 1 PAC, no ST elevation or depression, normal intervals [] (TATYANA WOLFF MD) Radiology/Procedures: Radiology/Procedures: Exam: CT head INDICATION: Lower extremity weakness TECHNIQUE: Sequential axial images through the head were obtained without the administration of IV contrast. Comparisons: 02/25/2020 FINDINGS: Redemonstration of craniotomy changes posteriorly with the aneurysmal clip the right BLOCK CHOPPER HAND distribution similar prior. Chronic infarct/encephalomalacia noted at the cerebellum. No focal parenchymal lesion or hemorrhage is identified. There is no midline shift or sulcal effacement. Patchy hypodensity in the periventricular white matter. No acute vascular territory infarction is identified. Kuhn-white distinction is preserved. The ventricular system is within normal limits without compression hydrocephalus. The basal cisterns are well maintained. The visualized portions of the paranasal sinuses and mastoid air cells are well- pneumatized. No acute fractures. IMPRESSION: No acute intracranial abnormality. [] (TATYANA WOLFF MD) Radiology/Procedures: FINDINGS: Augmented T12 and L1 compression fractures. Mild progression of superior endplate height loss at L1 relative to the preoperative augmentation CT but this is not acute. Noting osteopenia, no acute fracture above or below T12 and L1. Unchanged millimetric retrolisthesis of L3 on L4 and grade 1 anterolisthesis of L4 on L5. No progression of discogenic arthrosis. Multilevel facet degeneration in addition to disc bulges/protrusions some of which are partially mineralized. Multilevel central canal stenosis such as at L1-L2, L2-L3 and L4-L5 has not appreciably changed. Multilevel neural foraminal stenosis also appears similar such as on the right more so than left at L4-L5 and L5-S1. Intact visualized sacrum, iliac bones and right hip. No prevertebral or dorsal paraspinous edema/hemorrhage. Extensive calcific atherosclerosis. Prostatomegaly. IMPRESSION: 1. Taking into consideration osteopenia no acute fracture seen throughout the lumbar or lower thoracic spine. Chronic compression fractures at T12 and L1 which have been augmented. 2. No significant change in extent of advanced multilevel spondylosis from . Similar degree of resultant central canal and neural foraminal stenosis which would be better assessed with nonemergent/outpatient MRI as deemed clinically necessary. (MICKIE GRAVES MD) Heart Score: C/O Chest Pain: No Risk Factors: Risk Factors: DM, Current or recent (<one month) smoker, HTN, HLP, family history of CAD, obesity. Risk Scores: Score 0 - 3: 2.5% MACE over next 6 weeks - Discharge Home Score 4 - 6: 20.3% MACE over next 6 weeks - Admit for Clinical Observation Score 7 - 10: 72.7% MACE over next 6 weeks - Early Invasive Strategies (TATYANA WOLFF MD) Course & Med Decision Making: Course & Med Decision Making Care transitioned at shift change. (TATYANA WOLFF MD) Course & Med Decision Making Took over patient care from day team. Laboratory analysis not concerning. Imaging not concerning for new acute osseous abnormalities, but did show chronic changes. On reassessment patient stated he was feeling well, was asymptomatic and was ready to go home. Patient states that he walks with a walker at home and was walked in the ED without issue. Patient states he is at his approximate baseline and is ready to go home. Advised to follow-up with primary care physician as soon as he can to discuss his ED visit and set up a follow-up. Advised to come back to the ED with new or concerning symptoms. Patient grateful, verbalized understanding and agreed with plan of discharge. (MICKIE GRAVES MD) Dragon Disclaimer: Dragon Disclaimer: This electronic medical record was generated, in whole or in part, using a voice recognition dictation system. (TATYANA WOLFF MD) Departure Departure: Referrals: RONALDO PULLIAM MD (PCP) TATYANA WOLFF MD Jul 10, 2020 17:28 MICKIE GRAVES MD Jul 10, 2020 19:13
[2020-07-10 17:52] LABS: BASO # 0.1 x10^3/uL (0.0-0.2); BASO % 1 % (0-3); EOS % 0 % (0-3); HEMATOCRIT 41.6 % (39.0-53.0); HEMOGLOBIN 13.9 g/dL (13.0-17.5); LYMPH # 0.7 x10^3/uL (1.0-4.8); LYMPH % 10 % (24-48); MEAN CORPUSCULAR HEMOGLOBIN 30 pg (25-35); MEAN CORPUSCULAR HGB CONC 34 g/dL (31-37); MEAN CORPUSCULAR VOLUME 88 fL (79-100); MONO # 0.7 x10^3/uL (0.0-1.1); MONO % 9 % (0-9); NEUT # 5.6 x10^3uL (1.8-7.7); NEUT % 80 % (31-73); PLATELET COUNT 164 x10^3/uL (140-400); RED BLOOD COUNT 4.74 x10^6/uL (4.30-5.70); RED CELL DISTRIBUTION WIDTH 14.4 % (11.5-14.5)
[2020-07-10 18:02] LABS: GFR 73.2; POTASSIUM 4.3 mmol/L (3.5-5.1)
--- NOTE | 2020-07-10 18:04 | RAD ---
Exam: CT head INDICATION: Lower extremity weakness TECHNIQUE: Sequential axial images through the head were obtained without the administration of IV co ntrast. Comparisons: 02/25/2020 FINDINGS: Redemonstration of craniotomy changes posteriorly with the aneurysmal clip the right SALT GRINDER distribution similar prior. Chronic infarct/encephalomalacia noted at the cerebellum. No focal parenchymal lesion or hemorrhage is identified. There is no midline shift or sulcal effaceme nt. Patchy hypodensity in the periventricular white matter. No acute vascular territory infarction is satnam ntified. Kuhn-white distinction is preserved. The ventricular system is within normal limits without compression hydrocephalus. The basal cisterns are well maintained. The visualized portions of the paranasal sinuses and mastoid air cells are well-pneumatized. No acute fractures. IMPRESSION: No acute intracranial abnormality. Exposure: One or more of the following in the visualized dose reduction techniques were utilized for this examination: 1. Automated exposure control 2. Adjustment of the MA and/or KV according to patient size Use of iterative of reconstructive technique Electronically signed by: Daksha Bustamante MD (07/10/2020 6:02 PM) [facility]
--- NOTE | 2020-07-10 18:13 | EKG ---
[address] [address] Test Date: 2020-07-10 Test Time: 17:15:31 Pat Name: HALEY SUÁREZ Department: Room: Gender: M Shipping Order Clerk: ESTHER : 1945 Requested By: TATYANA WOLFF Order Number: [id number] Reading MD: Measurements Intervals [place] Rate: 76 P: 26 MT: 188 QRS: 27 QRSD: 86 T: 49 QT: 338 QTc: 380 Interpretive Statements SINUS RHYTHM ATRIAL PREMATURE COMPLEX(ES) OTHERWISE NORMAL ECG RI6.02 No previous ECG available for comparison
[2020-07-10 18:15] LABS: ALBUMIN 3.3 g/dL (3.4-5.0); ALBUMIN/GLOBULIN RATIO 1.1 (1.0-1.7); MAGNESIUM 1.8 mg/dL (1.8-2.4); PHOSPHORUS 3.4 mg/dL (2.6-4.7); TOTAL BILIRUBIN 0.5 mg/dL (0.2-1.0); TOTAL PROTEIN 6.4 g/dL (6.4-8.2)
--- NOTE | 2020-07-10 18:17 | RAD ---
Study: CT lumbar spine without contrast INDICATION: Lower extremity weakness. COMPARISON: 02/25/2020 TECHNIQUE: Axial CT imaging of the lumbar spine performed without the use of intravenous contrast. One or more of the following individualized dose reduction techniques were utilized for this examinat ion: 1. Automated exposure control 2. Adjustment of the mA and/or kV according to patient size 3. Use of iterative reconstruction technique. FINDINGS: Augmented T12 and L1 compression fractures. Mild progression of superior endplate height loss at L1 r elative to the preoperative augmentation CT but this is not acute. Noting osteopenia, no acute fractu re above or below T12 and L1. Unchanged millimetric retrolisthesis of L3 on L4 and grade 1 anterolisthesis of L4 on L5. No progress ion of discogenic arthrosis. Multilevel facet degeneration in addition to disc bulges/protrusions jessica e of which are partially mineralized. Multilevel central canal stenosis such as at L1-L2, L2-L3 and L 4-L5 has not appreciably changed. Multilevel neural foraminal stenosis also appears similar such as o n the right more so than left at L4-L5 and L5-S1. Intact visualized sacrum, iliac bones and right hip. No prevertebral or dorsal paraspinous edema/hemorrhage. Extensive calcific atherosclerosis. Prostatom egaly. IMPRESSION: 1. Taking into consideration osteopenia no acute fracture seen throughout the lumbar or lower thorac ic spine. Chronic compression fractures at T12 and L1 which have been augmented. 2. No significant change in extent of advanced multilevel spondylosis from 02/25/2020. Similar degre e of resultant central canal and neural foraminal stenosis which would be better assessed with noneme rgent/outpatient MRI as deemed clinically necessary. Electronically signed by: TAYLER ROSE MD (07/10/2020 6:15 PM) [facility]
[2020-07-10 19:32] VITALS: BP 132/47
[2020-07-10 20:13] LABS: BACTERIA,URINE 0 /HPF (0-FEW); BILIRUBIN,URINE NEG (NEG); CLARITY,URINE CLEAR; COLOR,URINE AMBER; GLUCOSE,URINE 100 mg/dL (NEG); NITRITE,URINE NEG (NEG); RBC,URINE 0 /HPF (0-2); SQUAMOUS EPITHELIAL CELL,UR OCC /LPF; UROBILINOGEN,URINE 0.2 mg/dL (0.2 mg/dL); WBC,URINE 0 /HPF (0-4)
== END 2020-07-10 19:40 | disposition home or self-care (01) ==
LOC: ER 17:05
DX: R53.1 Weakness (principal); R32 Unspecified urinary incontinence; R60.0 Localized edema; M19.90 Unspecified osteoarthritis, unspecified site; I25.10 Atherosclerotic heart disease of native coronary artery without angina pectoris; E11.9 Type 2 diabetes mellitus without complications; E78.00 Pure hypercholesterolemia, unspecified; I11.9 Hypertensive heart disease without heart failure; Z86.73 Personal history of transient ischemic attack (TIA), and cerebral infarction without residual deficits; Z90.89 Acquired absence of other organs; Z90.49 Acquired absence of other specified parts of digestive tract; Z88.8 Allergy status to other drugs, medicaments and biological substances
CPT/HCPCS: 36415; 70450; 72131; 80053; 81001; 82140; 83735; 83880; 84100; 85025; 93005; 99284; G0480

== ENCOUNTER 2020-08-14 12:31 | Emergency (ER) | payer MEDICARE ==
[~2020-08-14] VITALS: Ht 170.2 cm; Wt 77.2 kg
--- NOTE | 2020-08-14 13:27 | PHYS DOC ---
Past History Past Medical History: Arthritis, CAD, CVA, Diabetes, High Cholesterol, Heart Disease, Hypertension, Stroke Past Surgical History: Appendectomy, Cholecystectomy, Other Additional Past Surgical Histo: CEREBRAL ANEURYSM Alcohol Use: None Drug Use: None Adult General Chief Complaint Chief Complaint: MECHANICAL FALL HPI HPI Patient is a 74-year-old male presenting after an unwitnessed fall at 2 AM in the morning. He reports he awoke around 2:00 this morning to go to the bathroom felt unsteady grabbed onto the dresser and landed on his left side onto a carpeted floor after the fall. He reports left lower lumbar pain, right knee pain, right rib/upper abdomen pain, and an inability to urinate since the fall. He reports he is presenting today mainly concerned in regards to his inability to urinate. He reports he has been feeling unsteady on his feet for the past 2 years and this is his second fall this week. He reports his first fall was earlier this week. At this time he reports walking down some concrete stairs to watch the [employer] game felt unsteady and fell hitting his head. He denies loss of consciousness with the previous fall and today's fall. 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 He reports additional history of a past stroke which has left a residual right-sided facial droop right arm numbness and her right arm that prefers to be in the bent and flexed position. He reports extensive back and abdomen surgeries however does not remember what surgeries he has had. Denies new paresthesias or numbness, loss of consciousness, being on blood thinners, syncope, chest pain, shortness of breath, fevers, and previous prostate issues. Review of Systems Review of Systems Fourteen body systems of review of systems have been reviewed. See HPI for pertinent positives and negative responses, other iglesias all other systems are negative, non-pertinent or non-contributory Allergies Allergies Allergies Coded Allergies Type Severity Reaction Last Updated Verified metformin Allergy Mild Diarrhea 04/25/17 Yes gabapentin Allergy Unknown 04/26/17 Yes Physical Exam Physical Exam Constitutional: Well developed, well nourished, no acute distress, non-toxic appearance. HENT: Normocephalic, atraumatic, bilateral external ears normal, oropharynx moist, no oral exudates, nose normal. Abrasion to the left upper forehead Eyes: PERRLA, EOMI, conjunctiva normal, no discharge. Neck: Normal range of motion, no tenderness, supple, no stridor. Cardiovascular:Heart rate regular rhythm, no murmur Lungs & Thorax: Bilateral breath sounds clear to auscultation Abdomen: Bowel sounds normal, soft, no tenderness, no masses, no pulsatile masses. Skin: Warm, dry, no erythema, no rash. Abrasion to the right and left elbow. Abrasion to the left lower lumbar region. Back: No tenderness, no CVA tenderness. Extremities: No tenderness, no cyanosis, no clubbing, ROM intact, no edema. Neurologic: Alert and oriented X 3, normal motor function, normal sensory function, no focal deficits noted. Cranial nerves II through XII intact, no pronator drift normal [id number] testing, 5 out of 5 strength in upper and lower extremity, normal [id number] testing sensation grossly intact to the face and both upper and lower extremities Psychologic: Affect normal, judgement normal, mood normal. Current Patient Data Vital Signs Vital Signs Date Time Temp Pulse Resp B/P (MAP) Pulse Ox O2 Delivery O2 Flow Rate FiO2 08/14/20 12:31 98.1 102 18 158/78 (104) 98 Room Air Lab Results Laboratory Tests Test 08/14/20 13:03 08/14/20 13:21 08/14/20 13:29 Urine Collection Type Unknown Urine Color Yellow Urine Clarity Clear Urine pH 7.0 Urine Specific [place] 1.015 Urine Protein Neg Urine Glucose (UA) Neg mg/dL Urine Ketones (Stick) Neg mg/dL Urine Blood Small Urine Nitrite Neg Urine Bilirubin Neg Urine Urobilinogen Dipstick 0.2 mg/dL Urine Leukocyte Esterase Neg Urine RBC 3-5 /HPF Urine WBC 0 /HPF Urine Bacteria Few /HPF Glucose (Fingerstick) 223 mg/dL White Blood Count 12.2 x10^3/uL Red Blood Count 4.79 x10^6/uL Hemoglobin 14.3 g/dL Hematocrit 41.8 % Mean Corpuscular Volume 87 fL Mean Corpuscular Hemoglobin 30 pg Mean Corpuscular Hemoglobin Concent 34 g/dL Red Cell Distribution Width 14.0 % Platelet Count 213 x10^3/uL Neutrophils (%) (Auto) 82 % Lymphocytes (%) (Auto) 12 % Monocytes (%) (Auto) 5 % Eosinophils (%) (Auto) 0 % Basophils (%) (Auto) 0 % Neutrophils # (Auto) 10.0 x10^3uL Lymphocytes # (Auto) 1.5 x10^3/uL Monocytes # (Auto) 0.6 x10^3/uL Eosinophils # (Auto) 0.0 x10^3/uL Basophils # (Auto) 0.0 x10^3/uL Sodium Level 135 mmol/L Potassium Level 4.5 mmol/L Chloride Level 103 mmol/L Carbon Dioxide Level 25 mmol/L Anion Gap 7 Blood Urea Nitrogen 24 mg/dL Creatinine 1.1 mg/dL Estimated GFR (Cockcroft-Gault) 65.6 BUN/Creatinine Ratio 22 Glucose Level 240 mg/dL Calcium Level 9.3 mg/dL Total Bilirubin 0.6 mg/dL Aspartate Amino Transf (AST/SGOT) 30 U/L Alanine Aminotransferase (ALT/SGPT) 47 U/L Alkaline Phosphatase 87 U/L Troponin I Quantitative < 0.017 ng/mL Total Protein 6.9 g/dL Albumin 3.4 g/dL Albumin/Globulin Ratio 1.0 Lipase 89 U/L Current Medications Medications (Trade) Dose Ordered Sig/Hali Route PRN Reason Start Time Stop Time Status Last Admin Dose Admin Sodium Chloride 1,000 ml @ 75 mls/hr 1X ONCE IV 08/14/20 14:15 08/15/20 03:34 08/14/20 14:15 EKG EKG EKG interpreted by sd at 1331 EKG showed ventricular rate of 85 with normal sinus rhythm no obvious ST elevations or depressions, normal intervals, normal EKG Radiology/Procedures Radiology/Procedures EXAM: CT head and cervical spine without contrast INDICATION: Fall COMPARISON: CT head 07/10/2020. CT head and C-spine 02/25/2020 TECHNIQUE: Axial CT imaging through the head and cervical spine without in travenous contrast. Sagittal and coronal reformats were obtained of the cervical spine. One or more of the following individualized dose reduction techniques were utilized for this examination: 1. Automated exposure control 2. Adjustment of the mA and/or kV according to patient size 3. Use of iterative reconstruction technique. FINDINGS: CT head: The ventricles and sulci are enlarged, unchanged. Extensive encephalomalacia in the right cerebellar hemisphere and aneurysm clips in the posterior fossa on the right are unchanged. Mild encephalomalacia in the left cerebellar hemisphere is unchanged. No intracranial hemorrhage, acute infarct, or mass lesion. There are surgical changes of occipital craniectomy. No acute fracture. Visualized paranasal sinuses and mastoid air cells are clear. The visualized globes and orbits are intact. CT cervical spine: No acute fracture. Alignment is normal. There is mild disc space narrowing at C6-C7. Anterior osteophytes at C5-C6 and C6-C7. No significant canal or foramin al narrowing. Prevertebral soft tissue is normal. Surgical changes and sequela of old injury in the posterior fossa, as described above. Impression: 1. No acute intracranial abnormality 2. Stable sequela of old injury in the cerebellum. 3. No acute osseous abnormality of the cervical spine. Electronically signed by: Aniya Underwood MD (08/14/2020 2:07 PM) [id number] EXAMINATION: CT PELVIS WO, 08/14/2020 1:27 PM CLINICAL INDICATION: Fall COMPARISON: CT pelvis 05/12/2015 TECHNIQUE: Helical CT imaging performed of the pelvis without the use of intravenous contrast. Sagittal and coronal reformats were obtained. One or more of the following individualized dose reduction techniques were utilized for this examination: 1. Automated exposure control 2. Adjustment of the mA and/or kV according to patient size 3. Use of iterative reconstruction technique. FINDINGS: There is a nondisplaced fracture through the anterior cortex of the sacrum at S3-S4. No other fracture. Alignment is normal. Mild degenerative joint disease of the hips. Mild/moderate degenerative disc disease at L4-L5 and L5-S1 with small disc bulges. There is foraminal narrowing bilaterally at L5-S1 and on the left at L4-L5. There are calcifications in the abdominal aorta and iliac arteries. IMPRESSION: Nondisplaced fracture of the anterior cortex of the sacrum at S3-S4. Electronically signed by: Aniya Underwood MD (08/14/2020 2:15 PM) [id number] CT of the chest without contrast: Clinical History: Reason: FALL / Spl. Instructions: / History: . Axial helical images of the chest were obtained without contrast. Comparison: June 06, 2019 There is coronary artery calcium patients. There is calcination the wall the thoracic aorta without aneurysm. The lungs and pleural margins are clear. There is no mediastinal or hilar lymphadenopathy. There is mild deformity of the ends of distal right fourth through ninth ribs. Impression: Minimally displaced rib fractures on the right are of uncertain age but could be acute. End impression PQRS Compliance Statement: One or more of the following individualized dose reduction techniques were utilized for this examination: 1. Automated exposure control 2. Adjustment of the mA and/or kV according to patient size 3. Use of iterative reconstruction technique Electronically signed by: Fabián Matthews III, MD (08/14/2020 2:20 PM) [facility] Heart Score C/O Chest Pain: No HEART Score for Chest Pain: HEART Score for Chest Pain Response (Comments) Value History Slighlty/Non-Suspicious 0 Age > 65 2 Risk Factors 1 or 2 Risk Factors 1 Total 3 Risk Factors: Risk Factors: DM, Current or recent (<one month) smoker, HTN, HLP, family history of CAD, obesity. Risk Scores: Risk Factors: DM, Current or recent (<one month) smoker, HTN, HLP, family history of CAD, obesity. Course & Med Decision Making Course & Med Decision Making Patient is a 74-year-old male who presents after a fall. Vitals were within normal limits on exam and physical exam revealed several soft tissue abrasions however no spinal step-offs or neuro logical defects seen on exam. Given this is the patient's second fall this week decision was made to obtain an EKG, CBC, CMP, troponin, CT head neck, CT chest, and pelvic x-ray. Bladder scan was obtained and showed 800 mL of urine retained within the bladder, patient was straight cath with urine sent off to lab for analysis with no findings of active infection. CBC revealed elevated white count and CMP revealed slightly elevated bun to creatinine ratio urine was clean, patient was given a 1 L bolus of normal saline. CT head neck revealed no acute abnormalities. CT chest and pelvis concerning for right sided rib fractures and sacral fracture at level of S3-S4. Patient reports pain is tolerable, currently 1/10 severity. He is ambulatory tolerating p.o. intake. I reviewed ER visit with him today and offered him admission for continued inpatient medical care and rehabilitation for likely nonsurgical management of his illnesses but patient deferred, states he needs to go home as he is primary caregiver of his . Admits he has good family support at home. I contacted patient's primary care provider and reviewed ER visit today, I reviewed findings of urinary retention in addition to rib fractures and sacral fracture. I discussed that patient did not want to stay in hospital setting, patient has office hours tomorrow on Monday and reports he can be seen then for close evaluation. I contacted patient's , reiterates that they both take care of each other at home, she reports that there is great family support, she will have " at least 1 or 2 of our grandchildren to come over and spend the night to help us out". Ultimately, I recommended and stressed need for hospital admission due to high risk of worsening condition but patient deferred. As such, it was advised that patient continue Tylenol and/or ibuprofen for as needed pain with ice packs to local regions of pain with extremely close follow-up with outpatient primary care provider tomorrow. There will be discussions regarding potential need for urology visit. Strict return precautions were discussed with good understanding by patient, all questions and concerns addressed prior to ER departure Critical Care Time This patient required critical care. Due to the fact that the patient required a significant amount of one on one physician - patient contact time, ordering and review of studies, arranging urgent treatment with development of a management plan, evaluation of patients response to treatment with frequent reassessments, and discussions with other providers this patient required 35 minutes of critical care time. Critical care time was indicated due to the inherent instability and/or potential for instability in this patient. The critical care time that is allocated to this patient is above and beyond any time spent on any other billable procedures performed on this patient. Dragon Disclaimer Dragon Disclaimer This electronic medical record was generated, in whole or in part, using a voice recognition dictation system. Departure Departure: Impression: Primary Impression: Fall Additional Impressions: Right rib fracture Fracture of sacrum Urinary retention Disposition: 01 DC HOME SELF CARE/HOMELESS Condition: STABLE Referrals: RONALDO PULLIAM MD (PCP) Patient Instructions: RICE - Routine Care for Injuries, Rib Fracture Additional Instructions: You were evaluated in the Emergency Department today for right-sided pain and tailbone pain after a fall. Your evaluation suggests minimally displaced right- sided rib fractures and nondisplaced tailbone fracture at level of S3-S4. There is no emergent and/or surgical intervention required at this time. As discussed, you were offered admission for continued medical care, rehab and other interventions as necessary but you declined. I have contacted your , you will have close family support with one of your grandson staying over to assist you with activities of daily living. I have also contacted your primary care physician and discussed your ER visit today. He will be able to see you in clinic tomorrow, please be sure to call his office today to confirm time of outpatient visit. If any concerning signs or symptoms present prior to outpatient follow-up do not hesitate to come back for repeat evaluation. - Move around as tolerated but avoiding heavy lifting. ``Bed rest is not recommended nor is it the best treatment for low back pain. - Medications will help control your discomfort: - -Ibuprofen (800 mg every 8 hours for pain) with food. - -Tylenol Return to the ED immediately if you develop any of the following problems: - Leaking urine or difficulty urinating; - Inability to control your bowels; - New numbness or weakness in your legs or numbness between your legs; - Inability to walk - Fever Problem Qualifiers JULIA ARZOLA DO Aug 14, 2020 13:27
[2020-08-14 13:52] LABS: BASO % 0 % (0-3); EOS % 0 % (0-3); HEMATOCRIT 41.8 % (39.0-53.0); HEMOGLOBIN 14.3 g/dL (13.0-17.5); LYMPH # 1.5 x10^3/uL (1.0-4.8); LYMPH % 12 % (24-48); MEAN CORPUSCULAR HEMOGLOBIN 30 pg (25-35); MEAN CORPUSCULAR HGB CONC 34 g/dL (31-37); MEAN CORPUSCULAR VOLUME 87 fL (79-100); MONO # 0.6 x10^3/uL (0.0-1.1); MONO % 5 % (0-9); NEUT % 82 % (31-73); PLATELET COUNT 213 x10^3/uL (140-400); RED BLOOD COUNT 4.79 x10^6/uL (4.30-5.70); WHITE BLOOD COUNT 12.2 x10^3/uL (4.0-11.0)
[2020-08-14 13:59] LABS: CALCIUM 9.3 mg/dL (8.5-10.1); CREATININE 1.1 mg/dL (0.7-1.3); GFR 65.6; POTASSIUM 4.5 mmol/L (3.5-5.1)
[2020-08-14 14:05] LABS: ALBUMIN 3.4 g/dL (3.4-5.0); TOTAL BILIRUBIN 0.6 mg/dL (0.2-1.0); TOTAL PROTEIN 6.9 g/dL (6.4-8.2)
[2020-08-14 14:05] LABS: BILIRUBIN,URINE NEG (NEG); CLARITY,URINE CLEAR; COLOR,URINE YELLOW; GLUCOSE,URINE NEG (NEG); NITRITE,URINE NEG (NEG); UROBILINOGEN,URINE 0.2 mg/dL (0.2 mg/dL)
[2020-08-14 14:06] LABS: BACTERIA,URINE FEW /HPF (0-FEW); WBC,URINE 0 /HPF (0-4)
--- NOTE | 2020-08-14 14:09 | RAD ---
EXAM: CT head and cervical spine without contrast INDICATION: Fall COMPARISON: CT head 07/10/2020. CT head and C-spine 02/25/2020 TECHNIQUE: Axial CT imaging through the head and cervical spine without intravenous contrast. Sagitta l and coronal reformats were obtained of the cervical spine. One or more of the following individualized dose reduction techniques were utilized for this examinat ion: 1. Automated exposure control 2. Adjustment of the mA and/or kV according to patient size 3. Use of iterative reconstruction technique. FINDINGS: CT head: The ventricles and sulci are enlarged, unchanged. Extensive encephalomalacia in the right cerebellar hemisphere and aneurysm clips in the posterior fossa on the right are unchanged. Mild encephalomalaci a in the left cerebellar hemisphere is unchanged. No intracranial hemorrhage, acute infarct, or mass lesion. There are surgical changes of occipital craniectomy. No acute fracture. Visualized paranasal sinuses and mastoid air cells are clear. The visualized globes and orbits are intact. CT cervical spine: No acute fracture. Alignment is normal. There is mild disc space narrowing at C6-C7. Anterior osteoph ytes at C5-C6 and C6-C7. No significant canal or foraminal narrowing. Prevertebral soft tissue is nor mal. Surgical changes and sequela of old injury in the posterior fossa, as described above. Impression: 1. No acute intracranial abnormality 2. Stable sequela of old injury in the cerebellum. 3. No acute osseous abnormality of the cervical spine. Electronically signed by: Aniya Underwood MD (08/14/2020 2:07 PM) [id number]
[2020-08-14] MEDS ORDERED: IV NORMAL SALINE 1,000ML 1,000 ML IV ONE (14:15)
--- NOTE | 2020-08-14 14:18 | RAD ---
EXAMINATION: CT PELVIS WO, 08/14/2020 1:27 PM CLINICAL INDICATION: Fall COMPARISON: CT pelvis 05/12/2015 TECHNIQUE: Helical CT imaging performed of the pelvis without the use of intravenous contrast. Sagitt al and coronal reformats were obtained. One or more of the following individualized dose reduction techniques were utilized for this examinat ion: 1. Automated exposure control 2. Adjustment of the mA and/or kV according to patient size 3. Use of iterative reconstruction technique. FINDINGS: There is a nondisplaced fracture through the anterior cortex of the sacrum at S3-S4. No oth er fracture. Alignment is normal. Mild degenerative joint disease of the hips. Mild/moderate degenera tive disc disease at L4-L5 and L5-S1 with small disc bulges. There is foraminal narrowing bilaterally at L5-S1 and on the left at L4-L5. There are calcifications in the abdominal aorta and iliac arterie s. IMPRESSION: Nondisplaced fracture of the anterior cortex of the sacrum at S3-S4. Electronically signed by: Aniya Underwood MD (08/14/2020 2:15 PM) [id number]
--- NOTE | 2020-08-14 14:22 | RAD ---
CT of the chest without contrast: Clinical History: Reason: FALL / Spl. Instructions: / History: . Axial helical images of the chest were obtained without contrast. Comparison: June 06, 2019 There is coronary artery calcium patients. There is calcination the wall the thoracic aorta without a neurysm. The lungs and pleural margins are clear. There is no mediastinal or hilar lymphadenopathy. There is mild deformity of the ends of distal right fourth through ninth ribs. Impression: Minimally displaced rib fractures on the right are of uncertain age but could be acute. End impression PQRS Compliance Statement: One or more of the following individualized dose reduction techniques were utilized for this examinat ion: 1. Automated exposure control 2. Adjustment of the mA and/or kV according to patient size 3. Use of iterative reconstruction technique Electronically signed by: Fabián Matthews III, MD (08/14/2020 2:20 PM) [facility]
[2020-08-14 15:14] VITALS: BP 138/63
[2020-08-14] MEDS ORDERED: ACETAMINOPHEN 325 MG TABLET PO ONE (15:15)
--- NOTE | 2020-08-15 06:34 | EKG ---
[address] [address] Test Date: 2020-08-14 Test Time: 13:23:39 Pat Name: HALEY SUÁREZ Department: Room: Gender: M Utility Driver: : [id number] Requested By: JULIA ARZOLA Order Number: [id number] Reading MD: Measurements Intervals [place] Rate: 85 P: 40 WI: 196 QRS: 48 QRSD: 90 T: 64 QT: 352 QTc: 419 Interpretive Statements SINUS RHYTHM OTHERWISE NORMAL ECG RI6.02 Compared to ECG 08/14/2020 13:20:33 No significant changes
== END 2020-08-14 15:22 | disposition home or self-care (01) ==
LOC: ER 12:31
DX: S22.31XA Fracture of one rib, right side, initial encounter for closed fracture (principal); S32.10XA Unspecified fracture of sacrum, initial encounter for closed fracture; R33.9 Retention of urine, unspecified; R51.9 Headache, unspecified; M54.2 Cervicalgia; E11.9 Type 2 diabetes mellitus without complications; E78.00 Pure hypercholesterolemia, unspecified; I11.9 Hypertensive heart disease without heart failure; I25.10 Atherosclerotic heart disease of native coronary artery without angina pectoris; Z86.73 Personal history of transient ischemic attack (TIA), and cerebral infarction without residual deficits; Z90.49 Acquired absence of other specified parts of digestive tract; W18.09XA Striking against other object with subsequent fall, initial encounter; Y93.89 Activity, other specified; Y92.89 Other specified places as the place of occurrence of the external cause; Y99.8 Other external cause status
CPT/HCPCS: 36415; 70450; 71250; 72125; 72192; 80053; 81001; 82947; 83690; 84484; 85025; 93005; 96360; 99291; J7030